=== PATIENT | female | born 1990 ===

== ENCOUNTER 2021-02-22 16:37 | Emergency (ER) | payer OTHER, SELFPAY ==
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
[2021-02-22 16:49] VITALS: BP 126/71; PULSE 122; RESP 17; TEMP 36.6; O2SAT 100
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
[2021-02-22] MEDS: Ibuprofen 600 MG TAB PO (18:20)
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
[2021-02-22] MEDS: Cephalexin 500 MG CAP PO (19:51)
[2021-02-22] MEDS: Cephalexin 500 MG CAP, 2 CAPS/BTL PO (19:51)
[2021-02-22 19:58] VITALS: BP 126/71; PULSE 98; RESP 17; TEMP 36.6; O2SAT 100
== END 2021-02-22 19:55 | disposition home or self-care (01) ==
LOC: ER 20:07
PROVIDERS: Emergency Provider Physician Assistant
DX: S91.311A Laceration without foreign body, right foot, initial encounter (principal); S80.11XA Contusion of right lower leg, initial encounter; S40.811A Abrasion of right upper arm, initial encounter; S40.812A Abrasion of left upper arm, initial encounter; S50.811A Abrasion of right forearm, initial encounter; V47.6XXA Car passenger injured in collision with fixed or stationary object in traffic accident, initial encounter
CPT/HCPCS: 81025; 99284; 73590; 73630; 99283

== ENCOUNTER 2021-03-10 16:13 | Outpatient (REF) | payer OTHER, SELFPAY ==
[2021-03-11 22:36] LABS: Calculated LDL 159 mg/dL (<100); Cholesterol 221 mg/dL (<200); HDL Cholesterol 40 mg/dL (40-60); Triglyceride 110 mg/dL (<150)
[2021-03-12 09:35] LABS: HIV-1/2 Ag & Ab Screen Negative (Negative)
[2021-03-14 14:05] LABS: Chlamydia Result Negative (Negative); GC Result Negative (Negative)
== END 2021-03-10 16:14 | disposition home or self-care (01) ==
LOC: NCHCN 16:13
PROVIDERS: Visit Provider Registered Nurse
DX: Z00.00 Encounter for general adult medical examination without abnormal findings (principal); Z11.3 Encounter for screening for infections with a predominantly sexual mode of transmission
CPT/HCPCS: 80061; 87389; 87491; 87591